=== PATIENT | female | born 1985 | race Caucasian/White ===

== ENCOUNTER → 2017-02-25 | Outpatient (CLI) | payer BC ==
[~2017-02-25] MED LIST: PRENTAB26 PO
== END | disposition home or self-care (01) ==
LOC: C.PAPS 08:56
PROVIDERS: ATTEND Obstetrics & Gynecology
DX: Z12.4 Encounter for screening for malignant neoplasm of cervix (principal)

== ENCOUNTER → 2017-02-25 | Outpatient (CLI) | payer BC ==
[2017-02-25 16:33] LABS: HEMATOCRIT 36.9 % (37-47); MEAN CELL VOLUME 88.5 fL (80-100); MEAN CORPUSCULAR HEMOGLOBIN 32.4 pg (25-34); MEAN CORPUSCULAR HGB CONC 36.6 g/dl (32-36); MEAN PLATELET VOLUME 10.7 fL (7.4-10.4); PLATELET COUNT 204 K/uL (130-400); RED BLOOD COUNT 4.17 M/uL (4.2-5.4); WHITE BLOOD COUNT 7.48 K/uL (4.8-10.8)
[2017-02-25 17:27] LABS: BASO % 0.3 %; BASO ABS # 0.02 K/uL (0-0.2); COMPLETE YES; EOS % 0.3 %; IG% 0.1 %; LYMPH % 23.7 %; LYMPH ABS # 1.77 K/uL (1.2-3.4); MONO % 5.6 %
[2017-02-25 18:24] LABS: URINE APPEARANCE CLEAR (CLEAR); URINE BILIRUBIN NEG (NEG); URINE COLOR YELLOW; URINE NITRITE NEG (NEG); URINE SPECIFIC GRAVITY 1.008 (1.000-1.030); UROBILINOGEN NEG (NEG)
[2017-02-25 18:25] LABS: MANUAL MICROSCOPIC REQUIRED? NO; REVIEW REQ? NO
[2017-03-01 00:01] LABS: CHLAMYDIA TRACH RNA*** NOT DETECTED (NOT DETECTED); GC (NEIS GONORRHOEAE)RNA** NOT DETECTED (NOT DETECTED)
== END | disposition home or self-care (01) ==
LOC: C.LAB1850 15:35
PROVIDERS: ATTEND Obstetrics & Gynecology
DX: Z34.90 Encounter for supervision of normal pregnancy, unspecified, unspecified trimester (principal)

== ENCOUNTER → 2017-04-22 | Outpatient (CLI) | payer BC ==
[2017-04-22 18:14] LABS: GTGD 50 Grams
== END | disposition home or self-care (01) ==
LOC: C.LAB1850 16:17
PROVIDERS: ATTEND Obstetrics & Gynecology
DX: Z34.82 Encounter for supervision of other normal pregnancy, second trimester (principal)

== ENCOUNTER → 2017-05-03 | Outpatient (CLI) | payer BC | END | disposition home or self-care (01) | LOC: C.LAB1850 08:14 | PROVIDERS: ATTEND Obstetrics & Gynecology | DX: O28.1 Abnormal biochemical finding on antenatal screening of mother (principal) ==

== ENCOUNTER → 2017-07-15 | Outpatient (CLI) | payer BC ==
[2017-07-15 11:38] LABS: HEMATOCRIT 35.2 % (37-47)
[2017-07-15 11:45] LABS: URINE APPEARANCE CLEAR (CLEAR); URINE BILIRUBIN NEG (NEG); URINE COLOR YELLOW; URINE EPITHELIAL CELL AUTO >30 /lpf (0-5); URINE NITRITE NEG (NEG); URINE PH 8.5 (4.5-7.5); URINE SPECIFIC GRAVITY 1.014 (1.000-1.030); UROBILINOGEN NEG (NEG)
[2017-07-15 11:47] LABS: MANUAL MICROSCOPIC REQUIRED? NO; REVIEW REQ? NO
== END | disposition home or self-care (01) ==
LOC: C.LAB1850 09:42
PROVIDERS: ATTEND Obstetrics & Gynecology
DX: Z34.83 Encounter for supervision of other normal pregnancy, third trimester (principal)

== ENCOUNTER → 2017-08-25 | Outpatient (CLI) | payer BC ==
[2017-08-25 18:19] LABS: ALT/SGPT 39 U/L (12-78); AST/SGOT 22 U/L (15-37); BLOOD UREA NITROGEN 5 mg/dl (7-18); BUN/CREATININE RATIO 7.6 (10-20); CALCIUM 8.2 mg/dl (8.5-10.1); CARBON DIOXIDE 23 mmol/L (21-32); CHLORIDE 105 mmol/L (98-107); CREATININE 0.61 mg/dl (0.60-1.20); GLUCOSE 66 mg/dl (70-99); POTASSIUM 3.5 mmol/L (3.5-5.1); SODIUM 137 mmol/L (136-145)
[2017-08-25 18:22] LABS: ALB/GLOB RATIO 0.7 (0.9-2); ALKALINE PHOSPHATASE 152 U/L (45-117)
== END | disposition home or self-care (01) ==
LOC: C.LAB1850 16:52
PROVIDERS: ATTEND Obstetrics & Gynecology
DX: R21 Rash and other nonspecific skin eruption (principal)

== ENCOUNTER → 2017-09-08 | Outpatient (CLI) | payer BC | END | disposition home or self-care (01) | LOC: C.LAB1850 16:54 | PROVIDERS: ATTEND Obstetrics & Gynecology | DX: Z34.83 Encounter for supervision of other normal pregnancy, third trimester (principal); L29.9 Pruritus, unspecified; Z3A.00 Weeks of gestation of pregnancy not specified ==

== ENCOUNTER 2022-01-15 23:13 | Inpatient (IN) ==
[2022-01-15] MEDS ORDERED: OXYTOCIN 30 UNITS/500 ML BAG IV PRN (23:30)
--- NOTE | 2022-01-15 23:37 | History & Physical Report ---
Date of Service January 15, 2022 Assessment & Plan (1) Normal labor: Plan: IUP at term in labor GBS negative epidural when requested anticipate vaginal History of Present Illness Primary Care Provider: NO PCP Patient is a 36 yo female EDC 01/21/22 who presents at 39+ weeks in active labor. uncomplicated. GBS- negative blood type O -positive Allergies Allergy/AdvReac Type Severity Reaction Status Date / Time amoxicillin Allergy Mild Hives Verified 01/11/22 14:30 Home Medications Medication Instructions Recorded Confirmed Type prenat.vits,karina,[id number] PO 06/05/21 01/11/22 History Patient History Medical History (Updated 01/15/22 @ 23:35 by Sandra Clark MD, FACOG) History of chicken pox Surgical History S/P wisdom tooth extraction Family History (Updated 06/05/21 @ 10:05 by Latoya Egan, LINDA) Grandfather Heart disease Other Stroke Denies family history of Ovarian cancer Prostate cancer Breast cancer Colorectal cancer Social History (Updated 06/05/21 @ 10:07 by Latoya Egan, LINDA) Smoking Status: Never smoker Second Hand Exposure: No; Hx Alcohol Use: No Hx Substance Use: No Preferred Language: [place] Communication Ability: Effective Visual Impairment: No Limitations Hearing Ability: Normal Beliefs That Will Affect Care: None marital status: marital status details: Dinesh De Leon (32) [phone] Current Living Situation: Family Current Living Situation Comment: Lives with family, have farm. current occupational status: employed current occupation: Teacher Review of Systems All systems reviewed & are unremarkable except as noted in HPI & below Physical Exam Constitutional: WD/WN, vitals as above Respiratory: normal respiratory effort, lungs clear to auscultation Cardiovascular: RRR, no murmur, no edema Psychiatric: A+Ox3, euthymic affect Genitourinary: OB Exam Abdomen: + vertex and + regular contractions (Q 2minutes) Manual OB Exam: + cervical dilation 4 cm, + cervical effacement 100% and + station -1 OB Exam Monitor Tracing: + external FHT monitor used, + external uterine monitor used, + category I and + normal FHT variability Results & Data ([place]) Vital Signs (Past 12 Hours) Vital Signs Pulse BP 01/15/22 23:21 99 H 132/88 Code Status & VTE Plan VTE Prophylaxis Plan VTE Prophylaxis will be ordered: No Coding Level of Care Code None Diagnoses Normal labor O80; Z37.9
[2022-01-15] MEDS: LACTATED RINGER'S 1,000 ML IV PRN (23:50)
[2022-01-15 23:51] LABS: Hematocrit (blood only) 36.5 % (37-47); Hemoglobin 12.7 g/dL (12.0-16.0); Mean Corpuscular Hemoglobin 32.6 pg (25-34); Mean Corpuscular Hgb Conc 34.8 g/dL (32-36); Mean Corpuscular Volume 93.6 fL (80-100); Mean Platelet Volume 11.7 fL (7.4-10.4); Platelet Count 197 K/uL (130-400); RDW Coefficient of Variation 12.6 % (11.5-14.5); RDW Standard Deviation 43.2 fL (36.4-46.3); White Blood Count 8.99 K/uL (4.8-10.8)
[2022-01-15] MEDS ORDERED: ePHEDrine sulfate 50 MG/ML AMP ONE (23:56)
[2022-01-15] MEDS ORDERED: fentaNYL citrate 100 MCG/2 ML VIAL ONE (23:56)
[2022-01-15] MEDS ORDERED: SODIUM CHLORIDE 0.9% INJ 10 ML VIAL ONE (23:56)
[2022-01-15] MEDS ORDERED: BUPIVACAINE 0.25% 30 ML VIAL ONE (23:56)
[2022-01-15] MEDS ORDERED: fentaNYL 2MCG/ML ROPIVACAINE 1.25MG/ML 100 ML BAG EPI ONE (23:57)
[2022-01-16] MEDS ORDERED: diphenhydrAMINE 50 MG/ML VIAL IV PRN (00:21)
[2022-01-16] MEDS ORDERED: ePHEDrine sulfate 50 MG/ML AMP IV PRN (00:21)
[2022-01-16] MEDS ORDERED: NALOXONE HCL 1 MG in SODIUM CHLORIDE 0.9% 1000ML 1,000 ML IV PRN (00:21)
[2022-01-16] MEDS ORDERED: NALOXONE HCL 0.4 MG/1 ML VIAL/CARP IV PRN (00:21)
[2022-01-16] MEDS ORDERED: NALBUPHINE HCL INJ 10 MG/ML AMP IV PRN (00:21)
[2022-01-16] MEDS ORDERED: PROMETHAZINE HCL 6.25 MG in SODIUM CHLORIDE 0.9% 50 ML IV PRN (00:21)
[2022-01-16] MEDS ORDERED: fentaNYL 2MCG/ML ROPIVACAINE 1.25MG/ML 100 ML BAG EPI PRN (00:21)
[2022-01-16] MEDS ORDERED: ONDANSETRON INJ 2 MG/ML 2 ML VIAL IV PRN (00:21)
--- NOTE | 2022-01-16 00:21 | Anesthesiology Consultation ---
Date of Service January 16, 2022 Assessment & Plan Chart Review Chart Review: Acceptable Risk for Surgery and Patient NOT seen in Pre Admission Testing Consults Requested none ASA ASA2 Proposed Anesthesia Anesthesia Type: Labor Epidural Risk / Benefits Reviewed With: PT / POA / Parent / Guardian, Accepts Plan and Informed Consent Obtained History Height/Weight Height: 5 ft 5 in Weight: 79.832 kg Allergies Allergy/AdvReac Type Severity Reaction Status Date / Time amoxicillin Allergy Mild Hives Verified 01/11/22 14:30 Medications Home Medications Medication Instructions Recorded Confirmed Last Taken prenat.vits,karina,[id number] PO 06/05/21 01/11/22 Unknown Past Medical History Medical History (Updated 01/15/22 @ 23:35 by Sandra Clark MD, FACOG) History of chicken pox Exercise / Class Metabolic Activity II 4-5 Yardwork/Stairs/Walk up hill Past Family History Family History (Updated 06/05/21 @ 10:05 by Latoya Egan RN) Grandfather Heart disease Other Stroke Denies family history of Ovarian cancer Prostate cancer Breast cancer Colorectal cancer Past Surgical History Surgical History S/P wisdom tooth extraction Past Anesthesia History No Hx of Anesthesia Complications and No Family Hx of Anesthesia Complications History of PONV No Hx of PONV and No Hx of Motion Sickness Social History Smoking Status: Never smoker Hx Alcohol Use: No Hx Substance Use: No Physical Exam Vital Signs Last Vital Signs Temp 36.6 C 01/15/22 23:26 Pulse 97 H 01/16/22 00:18 Resp 20 01/15/22 23:26 BP 119/74 01/16/22 00:18 Pulse Ox 99 01/16/22 00:17 ENMT Mouth: no dentition abnormality Thyromental Distance: > or= 3.5 Finger Breadths Mallampati Class: II Neck normal visual inspection Respiratory normal respiratory effort Auscultation: lungs clear to auscultation bilaterally Cardiovascular Rate/Rhythm: regular rate and regular rhythm Psychiatric Orientation: alert Testing Laboratory Results 01/15/22 23:38
[2022-01-16] MEDS: LACTATED RINGER'S 1,000 ML IV PRN (04:19)
--- NOTE | 2022-01-16 06:13 | Delivery Summary ---
Vaginal Delivery Summary Date of Service January 16, 2022 Vaginal Delivery Summary and 1st Degree LAC Patient is a 36-year-old 3 para 2-0-0-2 white female EDC of 01/21/2022 who presents in active labor. She received effective epidural analgesia. Membranes were then ruptured for clear fluid. She progressed to full dilation and had the urge to push. She pushed effectively over intact perineum for a viable female . The was delivered from the occiput anterior presentation. Rest the delivered easily and was placed on the mother's abdomen for further attention and drying. She was vigorous and moving all 4 limbs. After 1 minute the cord was clamped and cut. After obtaining cord blood the placenta was expressed intact with a three-vessel cord. bleeding was controlled with dilute Pitocin. First-degree perineal laceration was repaired with 3-0 chromic in the usual fashion. Estimated blood loss was 200 cc. Mother and infant were doing well. [facility] [place] Vaginal Delivery Charge Delivery Type Details: and 1st Degree LAC
[2022-01-16] MEDS ORDERED: DIPHTHERIA/TETANUS/PERTUSSIS 0.5 ML SYR/VIAL IM ONE (06:27)
[2022-01-16] MEDS ORDERED: OXYTOCIN 30 UNITS/500 ML BAG IV PRN (06:27)
[2022-01-16] MEDS ORDERED: ACETAMINOPHEN 325 MG TAB PO PRN (06:27)
[2022-01-16] MEDS ORDERED: BENZOCAINE 20% AER SPR 82.5 GM CAN EXT PRN (06:27)
[2022-01-16] MEDS ORDERED: HYDROCORTISONE ACETATE 25 MG SUPP PR PRN (06:27)
[2022-01-16] MEDS ORDERED: oxyCODONE/ACETAMINOPHEN 5mg/325mg TAB PO PRN (06:27)
--- NOTE | 2022-01-16 07:19 | Anesthesia Procedure Note ---
Date of Service January 16, 2022 Anesthesia Post Epidural Note Vital Signs Vital Signs: Temp Pulse Resp BP Pulse Ox 36.7 C 83 20 109/58 L 97 01/16/22 07:05 01/16/22 07:05 01/16/22 07:05 01/16/22 07:05 01/16/22 06:17 Notes Mental Status: alert / awake / arousable and participated in evaluation Nausea / Vomiting: adequately controlled Pain: adequately controlled Airway Patency, RR, SpO2: stable & adequate BP & HR: stable & adequate Hydration State: stable & adequate Neuraxial Anesthesia: was administered and sensory block is resolving Anesthetic Complications: no major complications apparent and Pt Satisfied with anesthetic care Epidural: Removed without complications and With tip intact
[2022-01-16] MEDS: IBUPROFEN 600 MG TAB PO PRN ×3 (09:03→23:24)
[2022-01-16] MEDS: PRENATAL VITAMIN 1 TAB PO SCH (09:03)
[2022-01-16] MEDS: DOCUSATE SODIUM 100 MG CAP PO SCH ×2 (09:03→22:29)
[2022-01-17 06:46] LABS: Hematocrit (blood only) 36.5 % (37-47); Hemoglobin 12.4 g/dL (12.0-16.0); Mean Corpuscular Hemoglobin 32.4 pg (25-34); Mean Corpuscular Volume 95.3 fL (80-100); Mean Platelet Volume 11.7 fL (7.4-10.4); Platelet Count 172 K/uL (130-400); RDW Standard Deviation 44.8 fL (36.4-46.3); Red Blood Count 3.83 M/uL (4.2-5.4); White Blood Count 8.98 K/uL (4.8-10.8)
--- NOTE | 2022-01-17 07:34 | Obstetrical Progress Note ---
Date of Service January 17, 2022 Assessment & Plan (1) Vaginal delivery: Doing well. Desires d/c later today. Instructions given. O+, RI Day #:: 1 Subjective Ambulation: ambulating normally Voiding: no voiding problems Passing Gas:: Yes Diet Tolerance:: regular diet Lochia:: Small Feeding Type:: breast feeding Physical Exam Constitutional WD/WN, vitals as above Cardiovascular Extremities: no calf tenderness and no edema Gastrointestinal (Abdomen) soft, nt, nd ff/nt at u Results & Data ([facility]) Vital Signs (Past 12 Hours) Vital Signs Temp Pulse Resp BP Pulse Ox 01/17/22 03:12 36.6 C 80 16 110/73 99 01/16/22 23:22 36.8 C 83 16 112/75 98
[2022-01-17] MEDS: PRENATAL VITAMIN 1 TAB PO SCH (07:52)
[2022-01-17] MEDS: DOCUSATE SODIUM 100 MG CAP PO SCH (07:52)
[2022-01-17] MEDS: IBUPROFEN 600 MG TAB PO PRN (07:52)
[2022-01-17] MEDS ORDERED: bisacodyL 5 MG TABEC PO SCH (20:00)
[2022-01-18] MEDS ORDERED: bisacodyL 10 MG SUPP PR PRN
== END 2022-01-17 13:07 | disposition home or self-care (01) | DRG 807 ==
LOC: OPB 23:13 → 4S1 23:14 → 4S2 01-16 09:52